=== PATIENT | male | born 1955 | race Caucasian/White ===

== ENCOUNTER 2016-12-25 10:54 | Emergency (ER) | payer OTHER ==
[2016-12-25 11:06] VITALS: PULSE 102; RESP 20; TEMP 97.9; O2SAT 92
--- NOTE | 2016-12-25 12:17 | EDPHY ---
H & P Time Seen by Provider: 12/25/16 11:01 HPI/ROS: 1 week prior to arrival this patient sustained a low back injury at work. He was bending forward with a weed whacker when he felt abrupt onset of low back pain and right lumbar paraspinous region that was initially nonradiating and mild intensity. However, the next day was moderate intensity and while walking to the bathroom he developed abrupt onset of worsening pain that radiates to his right thigh anteriorly more than posteriorly. The symptoms persist. He reports near resolution of pain while he is holding still with certain movements he developed some low back spasm feeling in the musculature. He describes the nature the pain is combination of achy and sharp. He has partial relief from ibuprofen. He took 400 mg at 5:30 a.m. prior to arrival. He notes no other exacerbating factors. She has had some difficulty sleeping over the past couple nights due to the pain. He has never had low back problems before. ROS: Constitutional: No fevers or other complaints HEENT: No complaints pulmonary: No shortness of breath or cough. No pleuritic pain. GI: No abdominal pain. : No hematuria Neuro: Numbness tingling or focal weakness. No bowel or bladder incontinence. Cardiovascular: No leg swelling or discoloration. 7 point ROS is otherwise negative Past Medical/Surgical History: Otherwise healthy though he admits that he has not seen a physician in many years. Social History: He drinks alcohol 3-6 beers a day. No drug use. Smoking Status: Heavy smoker Physical Exam: General Appearance: Alert, no distress. Eyes: Pupils equal and round no pallor or injection. ENT, Mouth: Mucous membranes moist. Respiratory: There are no retractions, lungs are clear to auscultation. Cardiovascular: Regular rate and rhythm. No pulsatile abdominal masses. Maintains 2+ symmetric pulses bilateral lower extremities Gastrointestinal: Abdomen is soft and nontender, no masses, bowel sounds normal. Back: No midline tenderness. He has right paraspinous muscular tenderness that is mild adjacent to the L4-5 region. Tenderness the sciatic notch. Straight leg raise is negative bilaterally. He has mild increase in the pain with lateral flexion away from the affected side. He still able to bend forward extends back without much difficulty. Neurological: GCS 15. He maintains normal light touch sensory exam bilateral lower extremities. 2+ symmetric patellar and Achilles DTRs bilaterally. He has 5 /5 strength in great toe dorsiflexion and plantar flexion bilaterally. Skin: Warm and dry, no rashes.Extremities are symmetrical, full range of motion. DIFFERENTIAL DIAGNOSIS: After history and physical exam differential diagnosis was considered for low back strain, discogenic/disc herniation pain, bony abnormality, pathologic fracture Constitutional: Initial Vital Signs Temperature (C) 36.6 C 12/25/16 11:03 Heart Rate 102 H 12/25/16 11:03 Respiratory Rate 20 12/25/16 11:03 Blood Pressure 181/105 H 12/25/16 11:03 O2 Sat (%) 92 12/25/16 11:03 O2 Delivery Mode Room Air Allergies/Adverse Reactions: No Known Allergies Allergy (Unverified 12/25/16 11:03) Home Medications: Medication Instructions Recorded Ibuprofen [Motrin (*)] 600 mg PO Q6 PRN #30 tab 12/25/16 Methocarbamol [Robaxin 750 mg (*)] 750 - 1,500 mg PO QID PRN #30 tab 12/25/16 MDM/Departure - MDM Diagnostics: Lumbar spine x-ray was read by radiologist and also reviewed by myself.- multilevel degenerative disc findings. No fracture. Findings consistent with muscle spasm of mild asymmetry. Imaging Results: Imaging Impressions Lumbar Spine X-Ray 12/25/16 11:22 Impression: 1. Secondary feature suggestive of a muscle spasm. 2. Multilevel degenerative spondylosis and disk disease, most pronounced at L1- L2, L3-L4, and L5-S1. If there is further clinical concern regarding the patient's lumbago and right radicular symptoms, MR imaging could be considered. ED Course/Re-evaluation: I counseled the patient regarding low back strain. After evaluation is no evidence of cauda equina, significant radiculopathy or clinically AAA. He does have hypertension and was not aware if having that the past. I advised follow up with outpatient physician on-call for recheck. He has no clinical evidence of end-organ injury. Recheck BP prior to discharge 156/99 - Depart Disposition: Home, Routine, Self-Care Clinical Impression: Lumbar strain Qualifiers: Encounter type: initial encounter Qualified Code(s): S39.012A - Strain of muscle, fascia and tendon of lower back, initial encounter Degenerative disc disease Qualifiers: Spinal region: lumbosacral Qualified Code(s): M51.37 - Other intervertebral disc degeneration, lumbosacral region Condition: Good Instructions: Low Back Strain (ED) Additional Instructions: Diagnosis: 1. Low back strain 2. Degenerative disc disease low back. Plan: Methocarbamol muscle relaxant, ibuprofen and Tylenol-1000 mg per 6 hours while awake if needed for pain No driving, alcohol or come methocarbamol Avoid heavy lifting for the next 3-7 days. Starts daily stretches prior to taking muscle relaxants in the morning. 3-5 minutes each of: "Butterfly stretch," "Sphinx stretch", "pigeon stretch", and hamstring stretch. Go to the emergency department for worsening of your symptoms despite the treatment plan. Follow up with work comp doctor for recheck in 2 days. You also have hypertension. Call Dr. Barroso-primary care physician to arrange to have a follow-up appointment for recheck and to establish primary care physician Stand Alone Forms: Work Limited Duty, Work Excuse Prescriptions: Ibuprofen [Motrin (*)] 600 mg PO Q6 PRN #30 tab PRN Reason: Pain Methocarbamol [Robaxin 750 mg (*)] 750 - 1,500 mg PO QID PRN #30 tab PRN Reason: Muscle Spasms Referrals: NONE *PRIMARY CARE P,. [Primary Care Provider] - As per Instructions Leila Barroso MD [[facility] Primary Care Provider] - As per Instructions
[2016-12-25 12:27] VITALS: BP 156/99
== END 2016-12-25 12:30 | disposition home or self-care (01) ==
LOC: CED 10:54
DX: S39.012A Strain of muscle, fascia and tendon of lower back, initial encounter (principal); M51.37 Other intervertebral disc degeneration, lumbosacral region; F17.200 Nicotine dependence, unspecified, uncomplicated; X58.XXXA Exposure to other specified factors, initial encounter; Y92.89 Other specified places as the place of occurrence of the external cause; Y99.0 Civilian activity done for income or pay; Y93.H2 Activity, gardening and landscaping
CPT/HCPCS: 72100-PO